=== PATIENT | female | born 1975 | race Caucasian/White ===

== ENCOUNTER 2017-10-21 18:58 | Emergency (ER) | payer OTHER ==
[2017-10-21] MEDS: DIAZEPAM 2 MG TAB PO (20:41)
[2017-10-21] MEDS: KETOROLAC 60 MG INJ IM (20:42)
[2017-10-21] MEDS: ACETAMINOPHEN 325 MG TAB PO (22:03)
== END 2017-10-21 22:07 | disposition home or self-care (01) ==
LOC: FTE 18:58
DX: M54.31 Sciatica, right side (principal); I10 Essential (primary) hypertension; E11.9 Type 2 diabetes mellitus without complications; Z79.84 Long term (current) use of oral hypoglycemic drugs
CPT/HCPCS: 81025; 96372; 99284-25